=== PATIENT | male | born 1945 | race Caucasian/White ===

== ENCOUNTER 2019-03-08 16:44 | Emergency (ER) | payer MEDICARE ==
[~2019-03-08 16:44] MED LIST: ACETIC ACID2 % AU; AMOX/K CLAV875 M1 PO; AUGMENTIN875TAB OR; BENADRYL25 M1 PO; LEVOTHYROXIN100 MCG PO; LISINOPRIL10 MG PO; METFORMIN500 M1 PO; MULTIVITAMI1 OR; NOVOLIN 70/30 IM; SIMVASTATIN20 MG PO; TESSALON PER100 MG PO
[2019-03-08 17:29] LABS: HEMATOCRIT 35.3 % (39.0-50.0); HEMOGLOBIN 11.3 g/dl (14.0-18.0); IMMATURE GRANULOCYTES 0.4 % (0.0-5.0); MEAN CELL VOLUME 96.4 fL CALC (80.0-100.0); MEAN CORPUSCULAR HGB 30.9 pG CALC (26.0-32.0); NEUT# 5.71 thou/uL (1.82-7.42); RED BLOOD COUNT 3.66 mill/uL (4.70-6.10); RED CELL DISTRI WIDTH 13.1 % (11.5-15.5)
[2019-03-08 17:49] LABS: ANION GAP 15 (6-22 (CALC)); BUN 22 mg/dL (8-23); BUN/CREATININE RATIO 22 (12-20 (CALC)); CARBON DIOXIDE 25 mmol/l (22-30); CHLORIDE 105 mmol/l (95-108); GFR > 60 ML/MIN (>=60 (CALC)); GFR FOR AFR.AMER. > 60 ML/MIN (>=60 (CALC)); POTASSIUM 4.7 mmol/l (3.5-5.1); SODIUM 141 mmol/l (137-146)
[2019-03-08] MEDS ORDERED: LANTUS100 UNIT/M SC (18:14)
[2019-03-08] MEDS ORDERED: NOVOLOG100 UNIT/M SC (18:15)
[2019-03-08] MEDS ORDERED: ATENOLOL50 MG PO (18:16)
[2019-03-08 18:21] VITALS: BP 174/71
== END 2019-03-08 18:10 | disposition left against medical advice (07) ==
LOC: ED 16:44
PROVIDERS: Family Medicine
DX: R00.1 Bradycardia, unspecified (principal); E11.9 Type 2 diabetes mellitus without complications; I10 Essential (primary) hypertension; Z79.4 Long term (current) use of insulin; Z91.19 Patient's noncompliance with other medical treatment and regimen

== ENCOUNTER 2022-04-11 22:51 | Emergency (ER) | payer OTHER, MEDICARE ==
[~2022-04-11 22:51] MED LIST changes: +ATENOLOL50 MG PO; +LANTUS100 UNIT/M SC; +NOVOLOG100 UNIT/M SC
[2022-04-11 23:05] VITALS: BP 139/60
[2022-04-11 23:15] VITALS: BP 131/61
[2022-04-11] MEDS ORDERED: GABAPENTIN100 MG PO (23:25)
[2022-04-11] MEDS ORDERED: TERAZOSIN1 MG PO (23:30)
[2022-04-11] MEDS ORDERED: SIMVASTATIN40 MG PO (23:30)
[2022-04-11 23:46] LABS: ALBUMIN 3.1 g/dL (3.2-5.0); ALKALINE PHOSPHATASE 199 u/l (38-126); BILIRUBIN, TOTAL 0.4 mg/dL (0.0-1.4); BUN 22 mg/dL (8-23); BUN/CREATININE RATIO 22 (12-20 (CALC)); CHLORIDE 113 mmol/l (95-108); CPK 25 u/l (52-200); GFR FOR AFR.AMER. > 60 ML/MIN (>=60 (CALC)); GFR OTHER RACES > 60 ML/MIN (>=60 (CALC)); MAGNESIUM 1.8 mg/dL (1.6-2.3); SGOT/AST 34 u/l (19-48); SODIUM 141 mmol/l (137-146); TOTAL PROTEIN 7.7 g/dL (6.3-8.2)
[2022-04-11 23:47] LABS: HEMATOCRIT 31.1 % (39.0-50.0); HEMOGLOBIN 9.5 g/dl (14.0-18.0); IMMATURE GRANULOCYTES 0.2 % (0.0-5.0); MEAN CELL VOLUME 103.7 fL CALC (80.0-100.0); MEAN CORPUSCULAR HGB 31.7 pG CALC (26.0-32.0); MEAN CORPUSCULAR HGB CONC 30.5 g/dL CAL (32.0-36.0); NEUT# 5.56 thou/uL (1.82-7.42); RED CELL DISTRI WIDTH 14.4 % (11.5-15.5)
[2022-04-11 23:54] VITALS: BP 134/53
[2022-04-11 23:55] LABS: ANION GAP 15 (6-22 (CALC)); CARBON DIOXIDE 19 mmol/l (22-30); MYOGLOBIN 47 ng/mL (0 - 121)
[2022-04-11 23:56] LABS: POTASSIUM 6.2 mmol/l (3.5-5.1)
[2022-04-12] VITALS: BP 125/56
[2022-04-12] LABS: URINE BILIRUBIN - DIPSTICK NEGATIVE (NEGATIVE); URINE BLOOD DIPSTICK NEGATIVE (NEGATIVE); URINE COLOR YELLOW; URINE GLUCOSE - DIPSTICK NEGATIVE (NEGATIVE); URINE KETONE NEGATIVE (NEGATIVE); URINE LEUK ESTERASE NEGATIVE (NEGATIVE); URINE NITRITE - DIPSTICK NEGATIVE (Negative); URINE PROTEIN - DIPSTICK NEGATIVE (NEG-TRACE); URINE UROBILINOGEN - DIPSTICK 0.2 E.U./dL (0.2)
[2022-04-12] MEDS ORDERED: LASIX20 MG PO (00:41)
[2022-04-12 00:46] VITALS: BP 126/50
[2022-04-12 01:00] VITALS: BP 128/51
[2022-04-12 01:15] VITALS: BP 113/51
[2022-04-12 01:35] LABS: TSH, 3RD GENERATION 6.11 uIU/mL (0.47 - 4.68)
[2022-04-12 01:58] VITALS: BP 113/51
== END 2022-04-12 01:58 | disposition home or self-care (01) | DRG 641 ==
LOC: ED 22:51
PROVIDERS: Family Medicine
DX: E87.5 Hyperkalemia (principal); I10 Essential (primary) hypertension; E11.9 Type 2 diabetes mellitus without complications; Z85.05 Personal history of malignant neoplasm of liver; Z79.84 Long term (current) use of oral hypoglycemic drugs

== ENCOUNTER 2022-06-20 09:38 | Emergency (ER) | payer OTHER, MEDICARE ==
[2022-06-20] VITALS (17 sets, daily range): BP systolic 100–125; BP diastolic 43–65
[~2022-06-20 09:38] MED LIST changes: +GABAPENTIN100 MG PO; +LASIX20 MG PO; +SIMVASTATIN40 MG PO; +TERAZOSIN1 MG PO
[2022-06-20 09:58] LABS: IMMATURE GRANULOCYTES 0.2 % (0.0-5.0); MEAN CORPUSCULAR HGB 31.5 pG CALC (26.0-32.0); NEUT# 7.84 thou/uL (1.82-7.42); RED BLOOD COUNT 4.29 mill/uL (4.70-6.10); RED CELL DISTRI WIDTH 13.9 % (11.5-15.5)
[2022-06-20 10:13] LABS: HEMATOCRIT 40.9 % (39.0-50.0); HEMOGLOBIN 13.5 g/dl (14.0-18.0); MEAN CELL VOLUME 95.3 fL CALC (80.0-100.0)
[2022-06-20 10:20] LABS: ALBUMIN 3.1 g/dL (3.2-5.0); ALKALINE PHOSPHATASE 279 u/l (38-126); BILIRUBIN, TOTAL 0.5 mg/dL (0.0-1.4); CARBON DIOXIDE 20 mmol/l (22-30); CREATININE 1.4 mg/dL (0.7-1.3); GFR FOR AFR.AMER. 59 ML/MIN (>=60 (CALC)); GFR OTHER RACES 49 ML/MIN (>=60 (CALC)); SGOT/AST 50 u/l (19-48); TOTAL PROTEIN 7.5 g/dL (6.3-8.2)
[2022-06-20 10:29] LABS: ANION GAP 19 (6-22 (CALC)); BUN 43 mg/dL (8-23); BUN/CREATININE RATIO 31 (12-20 (CALC)); CHLORIDE 96 mmol/l (95-108); POTASSIUM 4.4 mmol/l (3.5-5.1); SODIUM 131 mmol/l (137-146)
[2022-06-20 10:35] LABS: PROTHROMBIN TIME 10.3 SECONDS (9.0-12.5)
[2022-06-20] MEDS ORDERED: GABAPENTIN100 MG PO (10:50)
[2022-06-20] MEDS ORDERED: SODIUM BICAR650 MG PO (10:52)
[2022-06-20] MEDS ORDERED: LORATADINE10 M1 PO (10:53)
== END 2022-06-20 15:07 | disposition short-term general hospital (02) | DRG 70 ==
LOC: ED 09:38
PROVIDERS: Family Medicine
DX: G93.41 Metabolic encephalopathy (principal); I63.9 Cerebral infarction, unspecified; R47.01 Aphasia; R29.716 NIHSS score 16; R56.9 Unspecified convulsions
CPT/HCPCS: Q9967